=== PATIENT | male | born 1995 | race Caucasian/White ===

== ENCOUNTER 2019-09-30 10:24 | Emergency (ER) | payer MEDICAID ==
[~2019-09-30] VITALS: Ht 182.9 cm; Wt 75.0 kg
[2019-09-30 11:15] LABS: CLARITY,URINE CLEAR (Clear); COLOR,URINE STRAW (Yellow); GLUCOSE, URINE NEGATIVE (Neg); KETONES,URINE TRACE mg/dl (Neg); LEUKOCYTE ESTERASE ,URINE TRACE (Neg); NITRITES, URINE NEGATIVE (Neg); OCCULT BLOOD,URINE NEGATIVE (Neg); PROTEIN,URINE NEGATIVE (Neg); UA COLLECTION TYPE CLN CATCH MIDSTREAM; UROBILINOGEN,URINE 0.2 E.U/dL (0.2-1.0)
[2019-09-30 11:20] LABS: URINE AMPHETAMINE SCREEN NEGATIVE (Neg); URINE BARBITUATE SCREEN NEGATIVE (Neg); URINE BENZODIAZEPINES SCREEN NEGATIVE (Neg); URINE CANNABINOID SCREEN NEGATIVE (Neg); URINE COCAINE SCREEN NEGATIVE (Neg); URINE METHADONE SCREEN NEGATIVE (Neg); URINE OPIATE SCREEN NEGATIVE (Neg); URINE PHENCYCLIDINE SCREEN NEGATIVE (Neg)
[2019-09-30 11:27] LABS: BACTERIA,URINE 1+ /HPF (Neg); RBC,URINE 0-2 /HPF (0-2); SQUAMOUS EPITHELIAL CELL,UR FEW /LPF (FEW); WBC,URINE 0-4 /HPF (0-4)
[2019-09-30 11:35] LABS: BASOPHILS % (AUTO) 0.5 % (0-1); EOSINOPHILS # (AUTO) 0.1 X10'3 (0-0.9); EOSINOPHILS % (AUTO) 1.3 % (0-6); HEMATOCRIT 47.6 % (42.0-52.0); HEMOGLOBIN 16.9 g/dl (14.0-17.9); LYMPHOCYTES # (AUTO) 1.3 X10'3 (1.1-4.8); LYMPHOCYTES % (AUTO) 17.9 % (21-51); MEAN CORPUSCULAR HEMOGLOBIN 30.9 PG (27.0-31.0); MEAN CORPUSCULAR HGB CONC 35.6 g/dL (33.0-36.5); MEAN PLATELET VOLUME 8.8 FL (7.4-10.4); MONOCYTES # (AUTO) 0.5 X10'3 (0-0.9); MONOCYTES % (AUTO) 6.1 % (2-12); NEUTROPHILS # (AUTO) 5.6 X10'3 (1.8-7.7); NEUTROPHILS % (AUTO) 74.2 % (42-75); PLATELET COUNT 160 X10'3 (140-440); RED BLOOD COUNT 5.48 X10'6 (4.70-6.10); WHITE BLOOD COUNT 7.5 X10'3 (4.5-11.0)
[2019-09-30 11:46] LABS: ALANINE AMINOTRANSFERASE 17 U/L (12-78); ALBUMIN 4.6 G/DL (3.4-5.0); ALBUMIN/GLOBULIN RATIO 1.7 (1.1-1.5); ALKALINE PHOSPHATASE 82 IU/L (46-116); ANION GAP 9 (8-16); ASPARTATE AMINO TRANSFERASE 17 U/L (10-37); BILIRUBIN,TOTAL 1.1 MG/DL (0.1-1.0); BLOOD UREA NITROGEN 19 MG/DL (7-18); CALCIUM 9.3 MG/DL (8.5-10.1); CHLORIDE 106 MMOL/L (99-107); CREATININE 1.12 MG/DL (0.60-1.10); GLUCOSE 69 MG/DL (70-104); POTASSIUM 3.4 MMOL/L (3.5-5.1); SODIUM 142 MMOL/L (135-145); TOTAL CARBON DIOXIDE 26.8 MMOL/L (24-32); TOTAL PROTEIN 7.3 G/DL (6.4-8.2); eGFR 81 ML/MIN
[2019-09-30 11:55] LABS: ETHANOL < 0.010 GM/DL (0.0-0.010)
--- NOTE | 2019-09-30 18:04 | NUR ---
Packet was faxed to [facility]
[2019-09-30] MEDS ORDERED: diphenhydrAMINE 25mg capsule PO ONE (21:00)
[2019-09-30] MEDS ORDERED: OLANZapine 2.5MG tablet PO SCH (21:00)
[2019-09-30] MEDS ORDERED: OLANZAPINE 5 MG TABLET PO ONE (21:00)
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
[2019-09-30] MEDS ORDERED: OLANZapine **IM** 10 mg inj. IM PRN (21:45)
[2019-09-30] MEDS ORDERED: diphenhydrAMINE 50 mg/ml inj IM PRN (21:45)
[2019-10-01 05:43] VITALS: BP 102/40
--- NOTE | 2019-10-01 07:28 | NUR ---
PT UP BRIEFLY TO SINK, ED POORNIMA FLORES GAVE PT REFILL OF WATER PITCHER, PT IS NOW RESTING ON LEFT SIDE, MOVES IN BED AND AROUND ADLIB, NO S/S OF DISTRESS DISCOMFORT OR AGITATION AT THIS TIME, PT IN LINE OF SITE OF NURSES STATION, WILL CONTINUE TO MONITOR PT, NO NEEDS AT THIS TIME
--- NOTE | 2019-10-01 08:25 | NUR ---
BREAKFAST TRAY PLACED AT PT BEDSIDE, PT SITTING UP EATIN NOW.
--- NOTE | 2019-10-01 09:13 | NUR ---
PT UP TO NURSES STATION INTERROGATING STAFF ABOUT CONVERSATIONS THAT NIGHT STAFF HAD WITH PT ELLE, WALKED PT BACK TO HIS BED INFORMED HIM I HAVE TRIED TO CALL PT MOTHER NO ANSWER VOICEMAIL FULL, MARK LEFT MESSAGE AT PHONE NUMBER OF PT AUNT, PT INFORMED OF PLAN OF CARE AND THAT [facility] WILL EVALUATE PT TODAY, PT STATES HE HAS TAKEN ATIVAN AND XANAX IN THE PAST FOR ANXIETY AND FLUOXETINE/PROSAC 10 MG DAILY THAT PT REPORTS HE WOULD BE AGREEABLE TO GETTING A PRESCRIPTION FOR PROSAC BUT HE STATES HE DOES NOT WANT TO TAKE MEDICATION HERE. PATIENT LAYED BACK IN BED
--- NOTE | 2019-10-01 10:24 | NUR ---
MARLENY WITH [facility] AT BEDSIDE FOR EVALUTION NOW
--- NOTE | 2019-10-01 11:37 | NUR ---
PT STATES HE DID NOT SLEEP AT ALL LAST NIGHT, PT STATES HAS TAKEN TRAZADONE IN THE PAST TO HELP WITH SLEEP, AMAIRANI RN TO SPEAK WITH PROVIDER ABOUT GETTING ORDER FOR TRAZADONE AND PRN ATIVAN.
--- NOTE | 2019-10-01 11:55 | NUR ---
CALLED GABINO IN [facility] TO REQUEST PT TO BE ADMITTED TO [facility] OR HAVE PROVIDER COME EVALUATE PT TO MAKE MEDICATION RECOMMENDATIONS, MARLENY WITH [facility] TO FINISH HER NOTE AND WILL THEN SEND PACKET TO [facility]
--- NOTE | 2019-10-01 12:03 | NUR ---
PT WALKED TO NURSES STATION ASKING ABOUT WHAT DOCTOR WILL COME SEE HIM, EXPLAINED I HAVE ASKED [facility] PROVIDER TO COME TO EVALUATE PT TO MAKE MEDICATION RECOMMENDATION, EXPLAINED TO PT THAT HE APPEARS ANXIOUS AND PARANOID, PT INTERROGATED BRADLEY TODD WITH MANY QUESTIONS, PT IS CONCERNED ABOUT BEING HOMELESS, INFORMED PT AGAIN HE IS ON A 5150 AND WILL MOST LIKELY BE PLACED IN A MENTAL HEALTH FACILITY WHERE HE WILL BE STABLIZED AND HOPEFULLY UPON DISCHARGE WILL BE MORE CLEAR MINDED AND ABLE TO MAKE SOME LIFE DECISION AND ESTABLISH A PLACE TO LIVE, PT ASKED AGAIN WHY I MADE CALL BECAUSE PT STATES I HAD TOLD PT I AM HERE TO MAKE SURE HE IS CARED FOR AND FOR HIS WELL BEING AND CALLED THE PSYCH DOCTOR IS NOT FOR HIS WELL BEING, BRADLEY TODD INFORMED PT I AM CONCERNED FOR YOUR MENTAL HEALTH WELL BEING AND PT WALKED BACK TO BED 23 TO LAY DOWN
--- NOTE | 2019-10-01 13:00 | NUR ---
LUNCH TRAY PLACED AT BEDSIDE.
--- NOTE | 2019-10-01 13:04 | NUR ---
Mom called, said she is moving and wants to bring some personal itiems. I advised her to rent a storage unit and put all pts belongings there until he is D/C'd, she wanted to bring his items here but I told her we can not store that much. She will try to come by tonight with pts wallet, medicine and other needed items for now.
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
--- NOTE | 2019-10-01 14:17 | NUR ---
CALLED [phone] LEFT MESSAGE WITH PT GREAT AUNT ARIN PER PT REQUEST
--- NOTE | 2019-10-01 14:44 | NUR ---
CALLED TO GET UPDATE FROM GABINO IN [facility], PT HAS BEEN ACCEPTED, THEY ARE AWAITING FOR A DISCHARGE AND WILL GET A STAT CLEAN, NO ETA OF WHEN PT WILL GO TO [facility] AT THIS TIME.
--- NOTE | 2019-10-01 15:42 | NUR ---
Pt discharged to [facility]. Pt escorted by BRADLEY Cassidy and security. Personal belongings collected and taken up to [facility] per WILLIAM Almonte. Original 5150 w/[facility] staff.
[2019-10-01] MEDS ORDERED: NO HOME MEDS (15:59)
== END 2019-10-01 15:45 ==
LOC: ER 10:25
DX: F31.11 Bipolar disorder, current episode manic without psychotic features, mild (principal); F60.0 Paranoid personality disorder; F22 Delusional disorders; F41.9 Anxiety disorder, unspecified; F20.9 Schizophrenia, unspecified; Z91.010 Allergy to peanuts; Z91.018 Allergy to other foods
CPT/HCPCS: 36415; 80053; 80305; 80320; 81001; 84443; 85025; 99285